=== PATIENT | male | born 1985 | race Caucasian/White ===

== ENCOUNTER 2022-09-30 18:52 | Emergency (ER) | payer MEDICAID ==
[~2022-09-30] VITALS: Ht 172.7 cm; Wt 75.0 kg
[2022-09-30 18:54] VITALS: BP 138/88
== END 2022-09-30 20:00 ==
LOC: ER 18:53
DX: S60.931A Unspecified superficial injury of right thumb, initial encounter (principal); S50.901A Unspecified superficial injury of right elbow, initial encounter; F17.200 Nicotine dependence, unspecified, uncomplicated; X58.XXXA Exposure to other specified factors, initial encounter; Y93.89 Activity, other specified; Y92.89 Other specified places as the place of occurrence of the external cause; Y99.8 Other external cause status
CPT/HCPCS: 99283